=== PATIENT | female | born 1945 | race Caucasian/White ===

== ENCOUNTER → 2024-01-12 07:28 | Outpatient (REF) | payer OTHER, SELFPAY | LOC: RCS 07:28 | PROVIDERS: ATTENDING PHYSICIAN Family Medicine | DX: R06.02 Shortness of breath (principal) | CPT/HCPCS: 93017 ==

== ENCOUNTER → 2024-03-16 12:58 | Outpatient (REF) | payer OTHER, SELFPAY | LOC: WDC 12:58 | PROVIDERS: ATTENDING PHYSICIAN Obstetrics & Gynecology Gynecology; FAMILY PHYSICIAN Family Medicine | DX: Z12.31 Encounter for screening mammogram for malignant neoplasm of breast (principal) | CPT/HCPCS: 77063; 77067 ==

== ENCOUNTER → 2024-03-18 09:49 | Outpatient (REF) | payer OTHER, SELFPAY | LOC: RCS 09:49 | PROVIDERS: ATTENDING PHYSICIAN Family Medicine | DX: R06.09 Other forms of dyspnea (principal) | CPT/HCPCS: 93017; 93350 ==

== ENCOUNTER → 2024-05-16 14:36 | Outpatient (REF) | payer OTHER, SELFPAY | LOC: RCS 14:36 | PROVIDERS: ATTENDING PHYSICIAN Internal Medicine Cardiovascular Disease; FAMILY PHYSICIAN Family Medicine | DX: I10 Essential (primary) hypertension (principal) | CPT/HCPCS: 93306 ==

== ENCOUNTER 2024-06-28 08:30 | Outpatient (RCR) | payer OTHER, SELFPAY | END 2024-06-29 09:03 | disposition home or self-care (01) | LOC: PURB 08:30 | PROVIDERS: ATTENDING PHYSICIAN Internal Medicine | DX: U09.9 Post COVID-19 condition, unspecified (principal) | CPT/HCPCS: G0237; G0239 ==

== ENCOUNTER 2024-07-12 08:30 | Outpatient (RCR) | payer OTHER, SELFPAY | END 2024-07-29 08:57 | disposition home or self-care (01) | LOC: PURB 08:30 | PROVIDERS: ATTENDING PHYSICIAN Internal Medicine | DX: J98.4 Other disorders of lung (principal); R06.00 Dyspnea, unspecified; U09.9 Post COVID-19 condition, unspecified | CPT/HCPCS: G0239 ==

== ENCOUNTER 2024-08-25 08:15 | Outpatient (RCR) | payer OTHER, SELFPAY | END 2024-08-29 10:00 | disposition home or self-care (01) | LOC: PURB 08:15 | PROVIDERS: ATTENDING PHYSICIAN Internal Medicine | DX: J98.4 Other disorders of lung (principal); U09.9 Post COVID-19 condition, unspecified | CPT/HCPCS: G0239 ==

== ENCOUNTER 2024-09-06 08:15 | Outpatient (RCR) | payer OTHER, SELFPAY | END 2024-09-06 23:59 | disposition home or self-care (01) | LOC: PURB 08:15 | PROVIDERS: ATTENDING PHYSICIAN Internal Medicine | DX: J98.4 Other disorders of lung (principal); U09.9 Post COVID-19 condition, unspecified | CPT/HCPCS: G0239 ==

== ENCOUNTER → 2024-09-08 14:26 | Outpatient (REF) | payer OTHER, SELFPAY | LOC: RAD 14:26 | PROVIDERS: ATTENDING PHYSICIAN Family Medicine | DX: R05.1 Acute cough (principal) | CPT/HCPCS: 71046 ==

== ENCOUNTER → 2025-03-21 12:59 | Outpatient (REF) | payer OTHER, SELFPAY | LOC: WDC 12:59 | PROVIDERS: ATTENDING PHYSICIAN Obstetrics & Gynecology Gynecology; FAMILY PHYSICIAN Family Medicine | DX: Z12.31 Encounter for screening mammogram for malignant neoplasm of breast (principal) | CPT/HCPCS: 77063; 77067 ==

== ENCOUNTER 2025-06-03 07:53 | Emergency (ER) | payer OTHER, SELFPAY ==
[2025-06-03 07:55] VITALS: BP 185/87
[2025-06-03 07:56] VITALS: BP 185/87
--- NOTE | 2025-06-03 09:00 | ED.GENMED ---
History of Present Illness
<Abel Bansal, DO - Last Filed: 06/03/25 09:06>
General
Chief Complaint: Skin Problem
Time Seen by Provider: 06/03/25 08:25
<Marsha Samuels MD, Resident - Last Filed: 06/03/25 09:23>
General
Source: patient
Exam Limitations: none
Nursing documentation reviewed up to this point in time: agreed with
History of Present Illness
History of Present Illness:
Ms. Gabrielle Smith is a 79yoF with a PMH notable for Shingles (s/p vaccination) who is presenting with 1 day of a rash on her trunk.
She noticed the rash 1 day ago after waking up. It started across her costal margin (bilaterally) and spread up the midline of her chest. She feels a constant burning sensation where the rash is. Clothing irritates the rash, so she has not been able
to tolerate wearing a bra, which prevents her from wanting to go out in public. She applied a cortisone cream and ketoconazole cream she had leftover at home and did not find either to help. She denies difficulty breathing (other than her chronic
exertional dyspnea that started after having covid).
She does not recall recent sick contacts. She had a dinner libertarian with 6 people the night before the onset of the rash. She denied eating new foods, other than strawberries at the dinner libertarian. She reported going to a gym earlier that same day (1 day
before rash), which is also not part of her usual schedule (for a few months). She denied using new detergent or wearing new clothing. Her last travel was during late March.
She has no known allergies to drugs or other substances. She started 2 new medications 2 weeks ago: amlodipine and celecoxib.
She states this rash feels and looks different than her Shingles rash, which was a deeper, more severe pain.
She stated she had planned to see her blackjack dealer on Thursday, but the rash grew so irritating she came to the ED today.
Past History
<Abel Bansal, DO - Last Filed: 06/03/25 09:06>
Past History
ED Past Medical History: GERD, Hypercholesterolemia and Other (arthritis)
ED Past Surgical History: Appendectomy
Social History
Tobacco: Non-smoker
Alcohol: None
Drug: None
Personal: Single
Family History
Family History: Other
Review of Systems
<Marsha Samuels MD, Resident - Last Filed: 06/03/25 09:23>
Review of Systems
All Other Systems: ROS reviewed and negative except as documented in HPI and ROS
Phy Exam
<Marsha Samuels MD, Resident - Last Filed: 06/03/25 09:23>
Physical Exam
Physical Exam:
Skin: Erythematous, ill-defined plaques across costal margin and medial anterior chest. Less concentrated under breasts.
Minimal erythematous papules on back and extremities, but not as confluent as anterior trunk.
Heart: regular rate and rhythm, no edema
Lungs: CTAB
Course
<Abel Bansal, DO - Last Filed: 06/03/25 09:06>
Orders/Labs/Results
Orders:
Orders
06/03/25 08:58
HydrOXYZINE [Atarax] 25 mg PO NOW STA
Prednisone [Deltasone] 50 mg PO NOW STA
Sulfamethox./Trimethoprim Ds [Bactrim Ds 800 mg/160 mg] 1 tablet PO NOW STA
Vital Signs
Initial and Last Documented VS:
Initial Vital Signs
Temp Pulse Resp BP Pulse Ox
98.6 F 78 18 185/87 98
06/03/25 07:55 06/03/25 07:55 06/03/25 07:55 06/03/25 07:55 06/03/25 07:55
Last Documented Vital Signs
Temp Pulse Resp BP Pulse Ox
98.6 F 78 18 185/87 98
06/03/25 07:55 06/03/25 07:55 06/03/25 07:55 06/03/25 07:56 06/03/25 09:00
<Marsha Samuels MD, Resident - Last Filed: 06/03/25 09:23>
Orders/Labs/Results
Orders:
Orders
06/03/25 08:58
HydrOXYZINE [Atarax] 25 mg PO NOW STA
Prednisone [Deltasone] 50 mg PO NOW STA
Sulfamethox./Trimethoprim Ds [Bactrim Ds 800 mg/160 mg] 1 tablet PO NOW STA
Vital Signs
Initial and Last Documented VS:
Initial Vital Signs
Temp Pulse Resp BP Pulse Ox
98.6 F 78 18 185/87 98
06/03/25 07:55 06/03/25 07:55 06/03/25 07:55 06/03/25 07:55 06/03/25 07:55
Last Documented Vital Signs
Temp Pulse Resp BP Pulse Ox
98.6 F 78 18 185/87 98
06/03/25 07:55 06/03/25 07:55 06/03/25 07:55 06/03/25 07:56 06/03/25 09:00
<Marsha Samuels MD, Resident - Last Filed: 06/03/25 09:23>
MDM/Problems Addressed
MDM/Problems Addressed:
Ms. Smith is a 79yoF with a PMH notable for Shingles who presents with patches across her costal margin and midline chest for 1 day. Vitals are stable.
Differential
- Lupus
- Contact dermatitis
- Taty intertrigo
- Drug rash
Plan
- Prednisone taper
- Bactrim
- Atarax
- Encourage her to see her blackjack dealer as planned
<Abel Bansal, DO - Last Filed: 06/03/25 09:06>
*Pulse Oximetry
SaO2: 98
<Marsha Samuels MD, Resident - Last Filed: 06/03/25 09:23>
*Pulse Oximetry
Patient hypoxic: no
*Critical Care Note
Total Time (30-74mins, 75-104mins- exclusive of procedures): Not Applicable
ED Attending Note
<Abel Bansal, DO - Last Filed: 06/03/25 09:06>
ED Attending Note
Patient seen and examined by attending physician: Yes
I performed a history and physical exam of patient and discussed management with resident, I reviewed resident's note and agree with documented findings and plan of care.: Yes
ED Attending Note:
I have seen and evaluated the patient with a [id number] encounter. I have spoken to the resident and involved in the medical history, the physical exam, medical decision making.
Evaluation and management service: agree unless noted differently below.
Results interpretation: agree unless noted differently below.
Focused HPI: 79-year-old female presenting with a rash that developed last night. She initially thought it could be fungal so she took fungal cream. Symptoms have not improved. She cannot recall any recent travel or allergies
Physical exam: Erythematous and raised rash to her central chest and under her breasts
Medical Decision Making: The rash gives appearance of pustules with mild surrounding erythema. Will start steroid taper and Bactrim. Will treat symptoms with Atarax. She states she is going to call her blackjack dealer on Thursday
-
Portions of this chart may have been created with voice recognition software.� Occasional wrong word or��sound alike� substitutions may have occurred due to the inherent limitations of voice recognition software.
Discharge Plan
Departure
Patient Disposition: Home (Routine Discharge)
Date of Disposition: 06/03/25
Time of Disposition: 09:00
Patient with high blood pressure during this ER visit?: Yes
Discharge Problem:
Rash
Instructions: Skin Rash (DC)
Prescriptions:
New
prednisone 10 mg tablet
See Rx Instructions .ROUTE .COMPLEX Qty: 45 0RF
Rx Instructions:
5 tabs day 1-3, 4 tabs day 4-6, 3 tabs day 7-9, 2 tabs day 10-12, 1 tab day 13-15
sulfamethoxazole-trimethoprim [Bactrim DS] 800-160 mg tablet
1 tab PO BID 7 Days Qty: 14 0RF
hydroxyzine HCl 25 mg tablet
25 mg PO BID PRN (Reason: itching) Qty: 20 0RF
No Action
Aspirin Low Strength Chewable:
81 mg PO DAILY
Biotin
10,000 mg PO DAILY
Calcium + D Soft Chewable Tab
1 tab PO DAILY
Probiotic
1 tab PO DAILY
Ranitidine
150 mg PO DAILY
Restasis 0.05% Ophthalmic Emulsion:
1 drp BOTH EYES BID
Triamterene-Hctz 37.5-25 mg Tb
1 tab PO DAILY
Vitamin D3:
5,000 mg PO DAILY
acyclovir 800 MG tablet
800 mg PO 5/D 10 Days 0RF
hydrocodone-acetaminophen [Vicodin] 1 EACH tablet
1 ea PO Q6HPRN PRN (Reason: pain) Qty: 10 0RF
lidocaine 1 PATCH adhesive patch,medicated
1 patch topical DAILY Qty: 10 0RF
Rx Instructions:
ON FOR 12 HOURS, OFF FOR 12 HOURS
Activity Restrictions/Additional Instructions:
Please return for any worsening symptoms.
You may return at any time if you have further concerns.
Please call your blackjack dealer for first available appointment.
Thank you for choosing [facility].
Interventions
Interventions:
*Risk Screen - Suicide Last Done: 06/03/25 07:57
*General Assessment Last Done: 06/03/25 07:57
*Neglect/Abuse Screening Last Done: 06/03/25 07:57
*ED- Fall Risk Assessment Last Done: 06/03/25 09:08
*ED COVID-19 Vaccine History Last Done: 06/03/25 09:08
*Nursing Disposition Last Done: 06/03/25 09:17
ED-Skin Assessment Last Done: 06/03/25 09:08
Discharge Date and Time
Print Language: UPPER SORBIAN
[2025-06-03 09:08] VITALS: BP 145/81; BMI 24.3
[2025-06-03] MEDS: BACTRIM DS 800 MG/160 MG 1 TABLET PO (09:11)
[2025-06-03] MEDS: ATARAX 25 MG PO (09:12)
[2025-06-03] MEDS: DELTASONE 50 MG PO (09:12)
== END 2025-06-03 09:18 | disposition home or self-care (01) ==
LOC: EMR 07:53
PROVIDERS: EMERGENCY PHYSICIAN Student in an Organized Health Care Education/Training Program; FAMILY PHYSICIAN Family Medicine
DX: R21 Rash and other nonspecific skin eruption (principal); E78.00 Pure hypercholesterolemia, unspecified
CPT/HCPCS: 99283

== ENCOUNTER → 2025-08-01 13:51 | Outpatient (REF) | payer OTHER, SELFPAY | LOC: REG 13:51 | PROVIDERS: ATTENDING PHYSICIAN Internal Medicine Gastroenterology | DX: R19.7 Diarrhea, unspecified (principal) | CPT/HCPCS: 83993; 87045; 87046; 87077; 87328; 87329; 87427 ==

== ENCOUNTER → 2025-08-21 13:37 | Outpatient (REF) | payer OTHER, SELFPAY ==
[2025-08-21 14:48] LABS: Blood Urea Nitrogen 13 mg/dl (7-17)
== END ==
LOC: REG 13:37
PROVIDERS: ATTENDING PHYSICIAN Internal Medicine Gastroenterology; FAMILY PHYSICIAN Family Medicine
DX: K58.9 Irritable bowel syndrome, unspecified (principal); R14.0 Abdominal distension (gaseous)
CPT/HCPCS: 36415; 82565; 84520

== ENCOUNTER → 2025-08-25 07:45 | Outpatient (REF) | payer OTHER, SELFPAY | LOC: RAD 07:45 | PROVIDERS: ATTENDING PHYSICIAN Internal Medicine Gastroenterology; FAMILY PHYSICIAN Family Medicine | DX: R14.0 Abdominal distension (gaseous) (principal) | CPT/HCPCS: 74177; Q9967 ==

== ENCOUNTER → 2025-09-25 14:31 | Outpatient (REF) | payer OTHER, SELFPAY | LOC: REG 14:31 | PROVIDERS: ATTENDING PHYSICIAN Internal Medicine Gastroenterology; FAMILY PHYSICIAN Family Medicine | DX: R19.7 Diarrhea, unspecified (principal) | CPT/HCPCS: 83993 ==